=== PATIENT | female | born 1950 | race Caucasian/White ===

== ENCOUNTER 2021-02-14 10:32 | Day surgery (SDC) | payer MEDICARE, BC ==
[~2021-02-14] VITALS: Ht 162.6 cm; Wt 70.5 kg
[~2021-02-14 10:32] MED LIST: LEXAPRO5 MG PO; NORVASC5 MG; PRAVACHOL20 MG PO; PRILOSEC; PRILOSEC20 MG PO
[2021-02-14 10:56] LABS: BASOPHILS 0.8 % (0-2); EOSINOPHILS 4.1 % (0-7); HEMATOCRIT 41.3 % (36.0-48.0); HEMOGLOBIN 13.8 g/dL (12-16); LYMPHOCYTE ABS# 0.92 10x3/uL (1.18-3.74); LYMPHOCYTES 23.8 % (15-50); MCH 30.5 pg (26.0-34.0); MCHC 33.4 g/dL (31.0-37.0); MCV 91.4 fL (80.0-100.0); MEAN PLATELET VOLUME 8.6 fL (7.4-10.4); MONOCYTES 6.5 % (2-11); NEUTROPHIL ABS# 2.51 10x3/uL (1.56-6.13); NEUTROPHILS 64.8 % (40-80); PLATELET COUNT 300 10x3/uL (130-400); RBC 4.52 10x6/uL (4.00-5.40); RDW 12.7 % (11.5-14.5); WBC 3.9 10x3/uL (4.8-10.8)
[2021-02-14 11:23] LABS: APTT 24.9 SECONDS (22.8-39.4); INR 1.06 (0.85-1.17); PROTIME 12.8 SECONDS (11.6-15.0)
[2021-02-14 11:26] LABS: ALBUMIN 4.2 g/dL (3.4-5.0); ANION GAP 15.2 mmol/L (8-16); BILIRUBIN - TOTAL 0.4 mg/dL (0.2-1.3); CALCIUM 9.9 mg/dL (8.5-10.1); CARBON DIOXIDE 25.6 mmol/L (21.0-32.0); CREATININE - SERUM 0.8 mg/dL (0.6-1.3); POTASSIUM - SERUM 3.8 mmol/L (3.5-5.1)
[2021-02-14] MEDS ORDERED: CARDIZEM 90 MG90 MG (12:34)
[2021-02-14] MEDS ORDERED: FAMOTIDINE10 MG (12:35)
[2021-02-14] MEDS ORDERED: ELIQUIS5 MG (12:36)
[2021-02-14] MEDS ORDERED: DETROL LA4 MG (12:37)
[2021-02-14 12:38] VITALS: Ht 162.6 cm; Wt 70.5 kg
--- NOTE | 2021-02-14 14:05 | NUR ---
DR MARTIN AT BEDSIDE 1412 THIS NURSE CALLED PT'S FRIEND TO PICK HER UP FAXED ORDER FOR F/U OFFICE VISIT FOR [address] MARTIN'S OFFICE 1418 DC TEACHING COMPLETE. PT VERBALIZED UNDERSTANDING. PIV DC'D, CATHETER INTACT. PATIENT GETTING DRESSED. 1430 PT DC'D VIA WC BY THIS NURSE TO POV WITH FRIEND DRIVING. PT HAS ALL BELONGINGS AND DC PACKET.
--- NOTE | 2021-02-15 14:32 | OP ---
PATIENT NAME: ALICE LOJA MEDICAL RECORD: [id number] :46 LOCATION:D.OPS ADMISSION DATE: SURGEON: EJ MARTIN DO DATE OF OPERATION: 02/14/2021 PROCEDURE: Colonoscopy. INDICATION FOR PROCEDURE: Change in bowel habits and recall colonoscopy with the patient's last colonoscopy being 5 years ago. SCOPE: Olympus video pediatric colonoscope. MEDICATIONS: Propofol 400 mg IV per anesthesia. WITHDRAWAL TIME: 11 minutes. ESTIMATED BLOOD LOSS: None. COMPLICATIONS: None. FINDINGS: Informed consent was given. The patient was made comfortable with the above medication. After reaching an adequate level of sedation by slow IV push, the patient was placed on her left side. A digital rectal examination was performed and it was normal. The endoscope was then advanced under direct visualization through the rectum to the cecum, confirmed by the presence of the appendiceal orifice and ileocecal valve. The endoscope was slowly withdrawn and the mucosa was carefully examined. The prep quality was good. There were no polyps visualized on today's examination. There was evidence of mild to moderate diverticulosis involving the descending and sigmoid colon. There was no evidence of diverticulitis. Retroflexion was performed in the rectum with visualization of a normal appearing rectal wall. The endoscope was withdrawn from the patient. The patient tolerated the procedure well and there were no complications. IMPRESSION: 1. Mild to moderate diverticulosis without diverticulitis involving the descending and sigmoid colon. 2. Otherwise, normal colonoscopy to the terminal ileum. PLAN AND RECOMMENDATIONS: 1. Discharge home when recovery parameters are met. 2. High fiber diet. 3. Continue current medications. 4. A prescription will be provided for dicyclomine 20 mg t.i.d. p.r.n. loose stools or abdominal pain and cramping. 5. Recall colonoscopy in 5 years. TRANSINT:[id number] Voice Confirmation ID: [id number] DOCUMENT ID: [id number] OPERATIVE REPORT [id number] ALICE LOJA EJ MARTIN DO at 1432 CC: [id number] DICTATION DATE: 02/14/21 1340 DISEASE EDUCATION SPECIALIST: 02/14/[address] [facility] 02/14/21 [id number] [place] [address]
== END 2021-02-14 14:30 | disposition home or self-care (01) ==
LOC: D.OPS 10:32
PROVIDERS: ATTEND Internal Medicine Gastroenterology
DX: R19.4 Change in bowel habit (principal); K57.30 Diverticulosis of large intestine without perforation or abscess without bleeding; Z86.010 Personal history of colon polyps